=== PATIENT | male | born 1985 | race Caucasian/White ===

== ENCOUNTER 2016-08-16 21:11 | Emergency (ER) | payer MEDICAID ==
[~2016-08-16] VITALS: Ht 180.3 cm; Wt 113.4 kg
[~2016-08-16 21:11] MED LIST: PROTONIX 40MG T40 MG PO
[2016-08-16] MEDS ORDERED: IBUPROFEN800 MG PO (21:25)
[2016-08-16 21:53] LABS: STREP SCREEN (RAPID) NEGATIVE
--- NOTE | 2016-08-16 22:23 | Emergency Room Report ---
History of Present Illness Time Seen by [id number] Presenting Problem in Triage Pt arrived:Walked Presenting Problem:HAD STREP AND L EAR INFECTION 2 WEEKS AGO AND ABX AND COMPLETELY FINISHED THEM AND STARTED FEELING BAD AGAIN 2 DAYS AGO; L EAR PAIN, L SIDE OF FACE PAIN AND SWELLING, SHARP BURN PAIN IN CHEST/LUNGS, BLOODY NOSE, CONGESTION, COUGHING UP GREEN SPUTUM, COLD CHILLS, 100-101 TEMP ON AND OFF Onset of symptoms date/time:08/14/16/ or onset unknown for:MEDICAL HX UNKNOWN Treatment Prior to Arrival: [employer] Provided by:LAYPERSON Sepsis Risk Assessment: Temp: 98.5 B/P: 158/70 MAP: 105 Pulse: 101 Resp: 20 Recent fever? Y Clinical Suspician of Infection? Y Mental Status: 1 - Regular (Normal Baseline) Sepsis Risk:Possible Sepsis Risk Have you (or family members/close friends) recently traveled outside the [place]? N If Yes, where/when: Have you had exposure to infectious disease within the past month? N TB? Other? Specify: Source patient, RN notes reviewed, old records Exam Limitations no limitations Comment has lt ear pain and dental caries w/o abscess with cough and just finished abx Cardiac Chest Pain Chest pain indicative of cardiac No Timing/Duration this evening Severity moderate ALLERGIES Coded Allergies: No Known Allergies (02/16/16) Home Medications Reported Medications Ibuprofen (Ibuprofen 800MG) 800 MG PO Q6HP PRN FEVER History Medical History General CAD? No Angina: No [place]: No Hypertension? No Hyperlipidemia? No CHF? No DVT? No PE? No COPD? No Asthma? Yes Anemia? No GERD? No Gastric ulcers? No GI Bleed? No Hernia? No Thyroid Problems? No Hypothyroidism? No CVA? No Seizures? No Diabetes? No Renal Insuffiency? No End Stage Renal Disease? No UTI? No Stones? No BPH? No GB Disease: No Nephritic Syndrome? No Asplenia? No Hepatitis? No Sickle Cell Disease? No Arthritis? No Migraines? No Cataracts? No Glaucoma? No MRSA? No HIV? No TB? No Anxiety? No Depression? No Cancer? No More? No Immunization Hx DT/Tetanus Unknown Flu Refused Pneumonia Never Had Surgical Hx Previous Surgery?Y RT HAND FX KNOT REMOVED R HEAD Family History Family Hx Diabetes Yes CAD Yes Hypertension No Hyperlipidemia No Cancer Yes TB No Social History Smoking Hx Smoker: Current Every Day Smoker Tobacco: Yes Type Cigarettes Packs/day < 1 Pack Are you/the child exposed to second-hand smoke: Yes Alcohol Alcohol: No Drugs none Review of Systems All Other Systems Reviewed and Negative Constitutional see HPI, fever Eyes denies drainage ENT see HPI, ear pain, dental caries, throat pain. denies: ear discharge, nose congestion. Respiratory cough, denies shortness of breath, denies wheezing Cardiovascular denies chest pain, denies syncope Gastrointestinal denies abdominal pain, denies diarrhea, denies vomiting Genitourinary denies: dysuria, frequency, hesitancy, hematuria. Musculoskeletal denies back pain, denies joint pain, denies joint swelling, denies neck pain Skin denies rash Psychiatric/Neurological denies headache, denies seizure Physical Exam Vital Signs Vital Signs Date Time Temp Pulse Resp B/P Pulse O2 O2 Flow FiO2 Ox Delivery Rate 08/16 2211 101 20 158/70 97 08/16 2117 98.5 101 20 162/77 97 - WBC >12,000 or <4,000 or 10% bands? 2 or more SIRS Criteria Met? B/P:158/70 MAP:105 Creatinine >2.0? UA output<0.5ml/kg/hr for 2 hrs? Platelet count >100,000? Lactate >2.0mmol/1? INR >1.2 or PTT > than 60 sec? Evidence of Organ Dysfunction? Provider documented clinical suspician of infection? Y Sepsis Criteria Count: 2 Sepsis Risk: Possible Sepsis Risk General Appearance no apparent distress Eye Exam - bilateral eye PERRL, bilateral eye EOMI Ear, Nose, Throat abnormal TM (L), dental caries, gingival disease Neck supple Respiratory Status No: respiratory distress. Cardiovascular regular rate/rhythm Peripheral Pulses Pulses normal Yes Extremities normal inspection Strength 4 Upper Ext (L), 4 Upper Ext (R), 4 Lower Ext (L), 4 Lower Ext (R) Neurologic alert, route vending machine servicer II-XII nml as tested, no motor/sensory deficits Reflexes Reflexes normal Yes Mental status normal mood/affect Skin intact Medical Decision Making LABS/Meds/Orders Pt receiving controlled substance in ED? No Results/Orders Laboratory Tests 08/16/162127: Influenza Type A Ag NOT DETECTED, Influenza Type B Ag NOT DETECTED Orders Procedure Date/time Status CULTURE, THROAT 08/16 2127 Active STREP SCREEN THROAT 08/16 2126 Complete INFLUENZA A&B ANTIGENS 08/16 2126 Complete Departure Departure Time of Disposition 2218 Disposition DC Home or Self Care(routine) Clinical Impression Primary Impression: Otitis media Qualifiers: Otitis media type: unspecified Laterality: left Chronicity: unspecified Qualified Code: H66.92 - Otitis media, unspecified, left ear Secondary Impressions: Pain due to dental caries Condition STABLE Patient Instructions DI for Dental Pain Additional Instructions use meds and see pcp and dentist for follow up Discharge Counseling Counseled pt/family regarding diagnosis, test results, medications/RX, follow up needs Prescriptions Current Visit Scripts Minocycline Hcl (Minocycline 100MG. Capsule) 100 MG PO BID #20 CAP ED Critical Care Critical Care No at 2238
[2016-08-16] MEDS ORDERED: MINOCYCLINE 10100 MG PO (22:30)
[2016-08-16 22:41] VITALS: BP 160/88
[2016-11-19] MEDS ORDERED: PREDNISONE 20MG20 MG PO (15:35)
[2016-11-19] MEDS ORDERED: MINOCYCLINE 10100 MG PO (15:35)
== END 2016-08-16 22:42 | disposition home or self-care (01) ==
LOC: ER 21:11
PROVIDERS: Emergency Medicine
DX: H66.92 Otitis media, unspecified, left ear (principal); K02.9 Dental caries, unspecified

== ENCOUNTER → 2017-03-18 | Outpatient (CLI) | payer SELFPAY ==
[~2017-03-18] MED LIST changes: +AUGMENTIN1 TA1 PO; +IBUPROFEN800 MG PO; +MINOCYCLINE 10100 MG PO; +PREDNISONE 20MG20 MG PO; +TESSALON PERLE100 MG PO; +ZITHROMAX Z PA250 MG PO
== END ==
LOC: UTC.OUT 18:54
DX: Z02.4 Encounter for examination for driving license (principal)